=== PATIENT | female | born 1965 | race Caucasian/White ===

== ENCOUNTER 2020-08-13 13:20 | Outpatient (CLI) | payer MEDICAID | END 2020-08-13 13:21 | disposition critical access hospital (66) | LOC: EMS 13:20 | PROVIDERS: ATTEND Emergency Medicine | DX: M54.2 Cervicalgia (principal) | CPT/HCPCS: A0425; A0429 ==

== ENCOUNTER 2020-08-13 14:08 | Emergency (ER) | payer MEDICAID ==
[2020-08-13] MEDS ORDERED: KETOROLAC 30 MG/ML VIAL IM STA (14:18)
[2020-08-13] MEDS ORDERED: ACETAMINOPHEN 325 MG TABLET PO STA (14:18)
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
[2020-08-13 14:21] VITALS: BP 121/76
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
[2020-08-13] MEDS ORDERED: HYDROmorphone 2 MG/ML VIAL IM STA (15:32)
== END 2020-08-13 16:04 | disposition home or self-care (01) ==
LOC: ED 14:08
DX: S90.32XA Contusion of left foot, initial encounter (principal); S16.1XXA Strain of muscle, fascia and tendon at neck level, initial encounter; V48.5XXA Car driver injured in noncollision transport accident in traffic accident, initial encounter; F10.129 Alcohol abuse with intoxication, unspecified; M47.22 Other spondylosis with radiculopathy, cervical region
CPT/HCPCS: 70450; 72125; 73630; 96372; 99284; A9270; J1170